=== PATIENT | male | born 1980 | race Caucasian/White ===

== ENCOUNTER 2019-11-27 11:13 | Emergency (ER) | payer OTHER ==
[2019-11-27 11:31] VITALS: BP 138/91; PULSE 87; RESP 20; TEMP 98
--- NOTE | 2019-11-27 11:57 | ED ---
Skin/Abscess/FB HPI - General Source: patient Mode of arrival: ambulatory Limitations: no limitations <Luna Tello - Last Filed: 11/27/19 13:25> <Shantal Narayanan - Last Filed: 11/27/19 22:58> - General Chief complaint: Skin/Abscess/Foreign Body Stated complaint: poss insect bite rt arm Time Seen by Provider: 11/27/19 11:33 - History of Present Illness Initial comments: 39 young male presenting for possible right arm insect bite. Patient states he woke up and thought he saw 2 fang grover in his right upper arm. He states that he express fluid from it. He states he scraped off the skin. Patient denies any surrounding redness denies fever chills general malaise denies additional symptoms. Patient states she is concerned he was bit by fight spider he states is from [place] and doesnt know what type of bugs we have here. Denies additional complaints. Denies noting lesion before today. (Luna Tello) - Related Data Previous Rx's Medication Instructions Recorded Cephalexin [Keflex] 500 mg PO Q6HR 5 Days #20 cap 11/27/19 Allergies Allergy/AdvReac Type Severity Reaction Status Date / Time No Known Allergies Allergy Verified 11/27/19 11:32 Review of Systems ROS Other: All systems not noted in ROS Statement are negative. <Luna Tello - Last Filed: 11/27/19 13:25> ROS Other: All systems not noted in ROS Statement are negative. <Shantal Narayanan - Last Filed: 11/27/19 22:58> ROS Statement: Those systems with pertinent positive or pertinent negative responses have been documented in the HPI. Past Medical History Past Medical History: No Reported History History of Any Multi-Drug Resistant Organisms: None Reported Past Surgical History: Cholecystectomy Past Psychological History: No Psychological Hx Reported Smoking Status: Current every day smoker Past Alcohol Use History: Occasional Past Drug Use History: Marijuana <Luna Tello - Last Filed: 11/27/19 13:25> General Exam Limitations: no limitations <Luna Tello - Last Filed: 11/27/19 13:25> - General Exam Comments Initial Comments: General: The patient is awake and alert, in no distress, and does not appear acutely ill. Eye: Pupils are equal, round and reactive to light, extra-ocular movements are intact. No nystagmus. There is normal conjunctiva bilaterally. No signs of icterus. Musculoskeletal: Normal ROM, no tenderness. Strength 5/5. Sensation intact. Pulses equal bilaterally 2+. Neurological: A&O x 3. CN II-XII intact, There are no obvious motor or sensory deficits. Coordination appears grossly intact. Speech is normal. Skin: Skin is warm and dry and no [id number] round area of skin peeled back there are folicles present no "fang grover noted" patient has no purulent drainage. No significant redness, some mild locally but none diffuse. Psychiatric: Cooperative, appropriate mood & affect, normal judgment. (Luna Tello) Course Vital Signs 11/27/19 11:28 Temperature 98.0 F Pulse Rate 87 Respiratory 20 Rate Blood Pressure 138/91 O2 Sat by Pulse 98 Oximetry Medical Decision Making <Luna Tello - Last Filed: 11/27/19 13:25> - Medical Decision Making 39yo presenting for bug bite. Patient endorsed the fluid came from the area. There is some mild local redness no diffuse redness. As I cannot differentiate if this is a insect bite or other probably to the skin there does appear to be some mild redness cannot rule out to be cellulitis patient be started on Keflex recommend close follow-up with primary care provider return parameters discussed patient discharged appearing well (Luna Tello) Disposition Is patient prescribed a controlled substance at d/c from ED?: No Time of Disposition: 11:57 <Luna Tello - Last Filed: 11/27/19 13:25> <Shantal Narayanan - Last Filed: 11/27/19 22:58> Clinical Impression: Arm skin lesion, right Disposition: HOME SELF-CARE Condition: Good Instructions (If sedation given, give patient instructions): Insect Bite or Sting (ED) Additional Instructions: Please use medication as discussed. Please follow-up with family doctor in the next 2 days. Please return to emergency room if the symptoms increase or worsen or for any other concerns. Prescriptions: Cephalexin [Keflex] 500 mg PO Q6HR 5 Days #20 cap Referrals: None,Stated [Primary Care Provider] - 1-2 days [facility] [NON-STAFF] - 1-2 days
== END 2019-11-27 12:05 | disposition home or self-care (01) ==
LOC: EC 11:13
DX: L98.9 Disorder of the skin and subcutaneous tissue, unspecified (principal); F17.200 Nicotine dependence, unspecified, uncomplicated
CPT/HCPCS: 99282